=== PATIENT | male | born 1985 | race Two or more races ===

== ENCOUNTER 2019-05-01 18:05 | Inpatient (IN) | payer MEDICAID, OTHER ==
[~2019-05-01] VITALS: Ht 162.6 cm; Wt 81.8 kg
[2019-05-01 19:04] LABS: Basophils # (auto) 0 10 ^3/uL (0-0.2); Basophils % (auto) 0.3 % (0.0-2.0); Eosinophils # (auto) 0.1 10 ^3/uL (0-0.8); Eosinophils % (auto) 1.9 % (0.0-7.0); Hematocrit 44.1 % (41.0-53.0); Hemoglobin 15.3 g/dL (13.5-17.5); Lymphocytes # (auto) 1.6 10 ^3/uL (0.4-5.4); Lymphocytes % (auto) 27.6 % (10.0-50.0); Mean Corpuscular Hemoglobin 32.6 pg (28.0-32.0); Mean Corpuscular Hgb Conc. 34.8 g/dL (32.0-36.0); Mean Corpuscular Volume 93.7 fL (80.0-100.0); Monocytes # (auto) 0.6 10 ^3/uL (0-1.3); Monocytes % (auto) 11.2 % (0.0-12.0); Neutrophils # (auto) 3.4 10 ^3/uL (1.6-8.6); Platelet Count (auto) 135 10^3/uL (140-450); Red Blood Cells 4.71 10^6/uL (4.5-5.90); Red Cell Distribution Width 13.2 % (11.8-14.3); White Blood Cell 5.7 10^3/uL (4.4-10.8)
[2019-05-01 19:19] LABS: Albumin 3.4 g/dL (3.4-5.0); BUN/Creatinine Ratio 13.5; Calcium 9.1 mg/dL (8.5-10.1)
[2019-05-01 19:22] LABS: Bilirubin, Total 0.5 mg/dL (0.2-1.0)
[2019-05-01] MEDS ORDERED: ONDANSETRON HCL 4 MG/2 ML VIAL IV ONE (21:00)
[2019-05-01] MEDS ORDERED: MORPHINE SULFATE 4 MG/ML SYR/VIAL IV ONE (21:00)
[2019-05-01] MEDS ORDERED: metroNIDAZOLE 500MG/100ML 100 ML IV ONE (21:00)
[2019-05-01] MEDS ORDERED: SODIUM CHLORIDE 0.9% 1,000 ML IV ONE (21:15)
[2019-05-01] MEDS ORDERED: DOCUSATE SOD 100 MG CAP PO PRN (21:30)
[2019-05-01] MEDS ORDERED: HYDROcodone-ACET 5/325MG TAB PO PRN (21:30)
[2019-05-01] MEDS ORDERED: ONDANSETRON HCL 4 MG/2 ML VIAL IV PRN (21:30)
[2019-05-01] MEDS ORDERED: ACETAMINOPHEN 325 MG TAB PO PRN (21:30)
[2019-05-01 22:37] VITALS: BP 125/71
[2019-05-01 23:30] VITALS: BP 125/72
[2019-05-02] MEDS ORDERED: MORPHINE SULF INJ 2 MG/ML SYRINGE 1ML IV PRN (00:15)
[2019-05-02] MEDS ORDERED: DEXTROSE (50%) 50ML SYRG IV PRN (01:15)
[2019-05-02] MEDS ORDERED: METF-371 PO (03:06)
[2019-05-02] MEDS: SODIUM CHLORIDE 0.9% 1,000 ML IV SCH ×5 (03:09→18:07)
[2019-05-02] MEDS ORDERED: INFLUENZA QUAD 2019-2020 0.5ml SYRG IM ONE (03:15)
[2019-05-02] MEDS: InsuLIN REG 1unit/0.01ml Soln (100units/ml) SC SCH ×5 (04:35→20:00)
[2019-05-02] MEDS: ACCU-CHEK COMFORT CURVE STRIP VI SCH ×5 (04:36→22:32)
[2019-05-02 05:44] VITALS: BP 110/62
[2019-05-02] MEDS: metroNIDAZOLE 500MG/100ML 100 ML IV SCH ×3 (06:17→22:33)
[2019-05-02 06:42] LABS: Basophils # (auto) 0 10 ^3/uL (0-0.2); Basophils % (auto) 0.3 % (0.0-2.0); Eosinophils # (auto) 0.1 10 ^3/uL (0-0.8); Eosinophils % (auto) 1.6 % (0.0-7.0); Hematocrit 40.6 % (41.0-53.0); Hemoglobin 14.2 g/dL (13.5-17.5); Lymphocytes # (auto) 1.2 10 ^3/uL (0.4-5.4); Lymphocytes % (auto) 19.9 % (10.0-50.0); Mean Corpuscular Hgb Conc. 35.1 g/dL (32.0-36.0); Mean Corpuscular Volume 94.1 fL (80.0-100.0); Monocytes # (auto) 0.5 10 ^3/uL (0-1.3); Neutrophils # (auto) 4.2 10 ^3/uL (1.6-8.6); Neutrophils % (auto) 69.2 % (37.0-80.0); Nucleated Red Blood Cells % 0.1 %; Platelet Count (auto) 117 10^3/uL (140-450); Red Blood Cells 4.31 10^6/uL (4.5-5.90); Red Cell Distribution Width 12.9 % (11.8-14.3); White Blood Cell 6.1 10^3/uL (4.4-10.8)
[2019-05-02 07:00] LABS: Calcium 8.2 mg/dL (8.5-10.1); Potassium 3.8 mmol/L (3.5-5.1)
[2019-05-02 07:03] LABS: BUN/Creatinine Ratio 13.3
[2019-05-02 09:00] VITALS: BP 110/62
[2019-05-02 12:30] VITALS: BP 110/68
[2019-05-02 17:27] VITALS: BP 110/69
[2019-05-02] MEDS ORDERED: levoFLOXacin 500MG 100 ML IV ONE (17:45)
[2019-05-02 22:00] VITALS: BP 104/60
[2019-05-02] MEDS ORDERED: metroNIDAZOLE 500MG/100ML 100 ML IV SCH (22:00)
[2019-05-03] MEDS: InsuLIN REG 1unit/0.01ml Soln (100units/ml) SC SCH ×6 (04:00→20:46)
[2019-05-03 05:00] VITALS: BP 105/66
[2019-05-03] MEDS: ACCU-CHEK COMFORT CURVE STRIP VI SCH ×6 (06:20→21:02)
[2019-05-03] MEDS: SODIUM CHLORIDE 0.9% 1,000 ML IV SCH ×2 (06:20→13:42)
[2019-05-03] MEDS: metroNIDAZOLE 500MG/100ML 100 ML IV SCH ×3 (06:20→21:53)
[2019-05-03 09:28] VITALS: BP 109/66
[2019-05-03] MEDS: levoFLOXacin 500MG 100 ML IV SCH (09:51)
[2019-05-03 17:37] VITALS: BP 111/72
[2019-05-03 22:00] VITALS: BP 102/65
[2019-05-04] MEDS: ACCU-CHEK COMFORT CURVE STRIP VI SCH ×4 (00:02→12:00)
[2019-05-04] MEDS: InsuLIN REG 1unit/0.01ml Soln (100units/ml) SC SCH ×4 (03:39→12:00)
[2019-05-04 05:00] VITALS: BP 102/59
[2019-05-04] MEDS: metroNIDAZOLE 500MG/100ML 100 ML IV SCH (05:42)
[2019-05-04 09:00] VITALS: BP 111/62
[2019-05-04] MEDS: levoFLOXacin 500MG 100 ML IV SCH (09:09)
[2019-05-04 12:08] VITALS: BP 111/62
== END 2019-05-04 12:50 | disposition home or self-care (01) | DRG 244 ==
LOC: ER 18:07 → OVERFLOW 18:08 → EAST 22:38
PROVIDERS: ADMIT Hospitalist; ATTEND Internal Medicine Nephrology
DX: K57.92 Diverticulitis of intestine, part unspecified, without perforation or abscess without bleeding (principal); K76.0 Fatty (change of) liver, not elsewhere classified; E11.65 Type 2 diabetes mellitus with hyperglycemia; E66.9 Obesity, unspecified; Z91.11 Patient's noncompliance with dietary regimen; Z91.14 Patient's other noncompliance with medication regimen; Z91.19 Patient's noncompliance with other medical treatment and regimen; Z68.31 Body mass index [BMI] 31.0-31.9, adult
CPT/HCPCS: 36415; 74176; 80048; 80053; 80061; 82150; 82962; 83036; 83690; 85025; 96361; 96365; 96375; G0378; J1815; J1956; J2405; J3490